=== PATIENT | male | born 2000 | race Asian ===

== ENCOUNTER 2018-10-28 23:32 | Emergency (ER) | payer OTHER ==
--- NOTE | 2018-10-29 01:05 | ED ---
Laceration/Wound HPI - HPI Summary HPI Summary: This patient is a 17 year old M presenting to [facility] with a chief complaint of forehead laceration after being hit in the forehead with a soccer ball. The patient rates the pain 1/10 in severity. - History of Current Complaint Stated Complaint: HEAD LAC Time Seen by Provider: 10/29/18 00:52 Hx Obtained From: Patient Onset/Duration: Lasting Hours, Still Present Timing: Constant Onset Severity: Mild Current Severity: Mild Pain Intensity: 1 Pain Scale Used: 0-10 Numeric Associated Signs & Symptoms: Negative - fever - Allergy/Home Medications Allergies/Adverse Reactions: Allergies Allergy/AdvReac Type Severity Reaction Status Date / Time No Known Allergies Allergy Verified 10/28/18 23:44 Home Medications: Home Medications NK [No Home Medications Reported] 10/29/18 [History Confirmed 10/29/18] PMH/Surg Hx/FS Hx/Imm Hx Endocrine/Hematology History: Denies: Hx Systemic Lupus Erythematosus Cardiovascular History: Denies: Hx Congenital Heart Disease, Hx Coronary Artery Disease, Hx Deep Vein Thrombosis, Hx Peripheral Vascular Disease, Hx Rheumatic Fever Neurological History: Denies: Hx Seizures, Hx Spinal Cord Injury, Hx Transient Ischemic Attacks ( TIA) - Immunization History Date of Tetanus Vaccine: utd Date of Influenza Vaccine: none Infectious Disease History: No Infectious Disease History: Denies: Traveled Outside the [place] in Last 30 Days - Family History Known Family History: Negative: Seizure Disorder - Social History Occupation: Student Lives: Dormitory/Roommates Alcohol Use: None Substance Use Type: Reports: None Smoking Status (MU): Never Smoked Tobacco Review of Systems Negative: Fever Positive: Other - lac All Other Systems Reviewed And Are Negative: Yes Physical Exam - Summary Physical Exam Summary: VITAL SIGNS: Reviewed. GENERAL: Patient is a well-developed and nourished male who is lying comfortable in the stretcher. Patient is not in any acute respiratory distress. HEAD AND FACE: No signs of trauma. No ecchymosis, hematomas or skull depressions. No sinus tenderness. EYES: PERRLA, EOMI x 2, No injected conjunctiva, no nystagmus. EARS: Hearing grossly intact. Ear canals and tympanic membranes are within normal limits. MOUTH: Oropharynx within normal limits. NECK: Supple, trachea is midline, no adenopathy, no JVD, no carotid bruit, no c- spine tenderness, neck with full ROM. CHEST: Symmetric, no tenderness at palpation LUNGS: Clear to auscultation bilaterally. No wheezing or crackles. CVS: Regular rate and rhythm, S1 and S2 present, no murmurs or gallops appreciated. ABDOMEN: Soft, non-tender. No signs of distention. No rebound no guarding, and no masses palpated. Bowel sounds are normal. EXTREMITIES: FROM in all major joints, no edema, no cyanosis or clubbing. NEURO: Alert and oriented x 3. No acute neurological deficits. Speech is normal and follows commands. SKIN: 1x1 L shaped laceration over the the glabella with free flap Triage Information Reviewed: Yes Vital Signs On Initial Exam: Initial Vitals Temp Pulse Resp BP Pulse Ox 99.1 F 95 20 138/92 97 10/28/18 23:42 10/28/18 23:42 10/28/18 23:42 12 23:42 10/28/18 23:42 Vital Signs Reviewed: Yes Procedures - Laceration/Wound Repair 1 Location: head Description: Irregular Anesthesia: 2.0% - 1 CC Length, Depth and Shape: 1x1cm L shaped with free flap Laceration/Wound Explored: clean Suture Type: Prolene - 5-0 Number of Sutures: 5 Diagnostics - Vital Signs Vital Signs Temp Pulse Resp BP Pulse Ox 10/28/18 23:42 99.1 F 95 20 138/92 97 - Laboratory Lab Statement: Any lab studies that have been ordered have been reviewed, and results considered in the medical decision making process. Laceration Repair Course/Dx - Course Assessment/Plan: This patient is a 17 year old M presenting to [facility] with a chief complaint of forehead laceration after being hit in the forehead with a soccer ball. The patient rates the pain 1/10 in severity. Laceration repaired in the ED. Patient will be discharged. The patient is agreeable with this plan. - Clinical Impression Provider Diagnoses: Forehead laceration Discharge - Sign-Out/Discharge Documenting (check all that apply): Patient Departure - Discharge Plan Condition: Stable Disposition: HOME Patient Education Materials: Laceration (ED), Care For Your Stitches (DC) Referrals: [facility] [Outside] Additional Instructions: Please follow up with your primary care provider in 6 days to have your sutures removed. RETURN TO THE EMERGENCY DEPARTMENT FOR CHANGING OR WORSENING SYMPTOMS - Attestation Statements Document Initiated by Scribe: Yes Documenting Scribe: Samuel Sarah Provider For Whom Scribe is Documenting (Include Credential): Santana Block MD Scribe Attestation: ISamuel , scribed for Santana Block MD on 10/29/18 at 0110. Status of Scribe Document: Ready
[2018-10-29 01:23] VITALS: BP 118/78
== END 2018-10-29 01:22 | disposition home or self-care (01) ==
LOC: ED 23:32
DX: S01.81XA Laceration without foreign body of other part of head, initial encounter (principal); W22.8XXA Striking against or struck by other objects, initial encounter; Y92.9 Unspecified place or not applicable
CPT/HCPCS: 12011; 99282